=== PATIENT | female | born 1995 | race Caucasian/White ===

== ENCOUNTER 2019-01-29 09:35 | Emergency (ER) | payer OTHER ==
[~2019-01-29] VITALS: Ht 157.5 cm; Wt 51.6 kg
[2019-01-29 13:03] VITALS: BP 107/65
== END 2019-01-29 14:07 | disposition home or self-care (01) ==
LOC: ED 11:05
DX: K21.9 Gastro-esophageal reflux disease without esophagitis (principal); R10.84 Generalized abdominal pain; K51.919 Ulcerative colitis, unspecified with unspecified complications
CPT/HCPCS: 36415; 74177; 80053; 81003; 83605; 83690; 84702; 85025; 96374; 96375; 99284; J2405; J2930; J3490; Q9967